=== PATIENT | male | born 1965 | race Caucasian/White ===

== ENCOUNTER 2018-06-18 09:25 | Day surgery (SDC) | payer BC, OTHER ==
[2018-06-17 13:17] VITALS: BMI 28.5
[2018-06-18 12:03] VITALS: TEMP 97.6
[2018-06-18 12:57] VITALS: BP 137/66; PULSE 45
--- NOTE | 2018-06-21 19:06 | PATH ---
Surgical Pathology Report Patient Name: ABAD RAMIREZ [facility]. Rec. #: [id number] /Age/Gender: 1965 (Age: 53) / M Account: [id number] Location: [facility]-ENDOSCOPY Taken: 06/18/2018 Received: 06/18/2018 Reported: 06/21/2018 Physicians: Alla Zacarias M.D. Specimen(s) Received A: DUODENUM B: ANTRUM Clinical History Screening, history of esophageal and colon polyps Postoperative diagnosis: Duodenitis, normal colonoscopy Final Diagnosis A. DUODENUM, SECOND PORTION AND BULB, BIOPSY: DUODENAL MUCOSA WITH MODERATE CHRONIC DUODENITIS AND MILD OCTAVIO'S GLAND HYPERPLASIA. B. STOMACH, ANTRUM, BIOPSY: GASTRIC ANTRAL MUCOSA WITH MODERATE CHRONIC GASTRITIS. IMMUNOHISTOCHEMICAL STAIN FOR H. PYLORI IS NEGATIVE. Electronically Signed Sunitha Graham M.D. Gross Description A. Received in formalin, labeled "second portion duodenum and bulb" are 3 garcia, irregular portions of soft tissue measuring 0.3-0.5 cm. in greatest dimension. The specimens are submitted in toto in one cassette. B. Received in formalin, labeled "antrum" are 2 garcia, irregular portions of soft tissue measuring 0.3 and 0.5 cm. in greatest dimension. The specimens are submitted in toto in one cassette. MLSZ/06/18/2018 sanml/06/18/2018
== END 2018-06-18 12:52 | disposition home or self-care (01) ==
LOC: JASU-ENDO 09:25
PROVIDERS: ATTEND Internal Medicine Gastroenterology
PROC: 0DB68ZX Excision of Stomach, Via Natural or Artificial Opening Endoscopic, Diagnostic (ICD-10-PCS; 2018-06-18)
PROC: 0DJD8ZZ Inspection of Lower Intestinal Tract, Via Natural or Artificial Opening Endoscopic (ICD-10-PCS; principal; 2018-06-18 10:30)
DX: Z12.11 Encounter for screening for malignant neoplasm of colon (principal); Z86.010 Personal history of colon polyps; K29.80 Duodenitis without bleeding; K29.50 Unspecified chronic gastritis without bleeding
CPT/HCPCS: 43239; G0105; 88305-TC; 88342-TC

== ENCOUNTER 2023-06-12 04:58 | Day surgery (SDC) | payer BC ==
[2023-06-02 12:52] VITALS: BMI 27.1
[2023-06-12 09:38] VITALS: TEMP 97.8
[2023-06-12 10:10] VITALS: RESP 20
[2023-06-12 10:18] VITALS: BP 127/78; PULSE 71
== END 2023-06-12 10:18 | disposition home or self-care (01) ==
LOC: JASU-ENDO 04:58
PROVIDERS: ATTEND Internal Medicine Gastroenterology
PROC: 0DBK8ZX Excision of Ascending Colon, Via Natural or Artificial Opening Endoscopic, Diagnostic (ICD-10-PCS; principal; 2023-06-12 10:00)
DX: Z12.11 Encounter for screening for malignant neoplasm of colon (principal); D12.3 Benign neoplasm of transverse colon; K64.8 Other hemorrhoids; Z86.010 Personal history of colon polyps
CPT/HCPCS: 88305-TC